=== PATIENT | female | born 1960 | race Caucasian/White ===

== ENCOUNTER 2018-12-27 21:51 | Emergency (ER) | payer BC ==
[~2018-12-27] VITALS: Ht 175.3 cm; Wt 74.8 kg
[2018-12-27 21:55] VITALS: BP_SYST 176
--- NOTE | 2018-12-27 21:55 | NUR ---
EKG done in triage
--- NOTE | 2018-12-27 22:01 | NUR ---
Patient triaged and placed in waiting room. VSS and patient appears in no acute distress at this time. Accompanied by , awaiting available bed, and MD notified of need for MSE.
[2018-12-27 22:46] LABS: BASOPHILS % (AUTO) 0.8 % (0.0-2.0); EOSINOPHILS # (AUTO) 0.2 K/uL (0.0-0.4); EOSINOPHILS % (AUTO) 3.2 % (0.0-4.0); HEMATOCRIT 43.3 % (36-48); HEMOGLOBIN 14.4 g/dL (12.0-16.0); LYMPHOCYTES # (AUTO) 1.5 K/uL (1.0-5.5); LYMPHOCYTES % (AUTO) 27.9 % (20.5-51.5); MEAN CORPUSCULAR HEMOGLOBIN 31 pg (27-31); MEAN CORPUSCULAR HGB CONC 33 % (32-36); MEAN CORPUSCULAR VOLUME 93 fL (79.0-98.0); MONOCYTES # (AUTO) 0.5 K/uL (0.0-1.0); NEUTROPHILS # (AUTO) 3.2 K/uL (1.8-7.7); NEUTROPHILS % (AUTO) 59.1 % (40.0-70.0); PLATELET COUNT (AUTO) 316 K/uL (130-430); RED BLOOD CELL COUNT(AUTO) 4.68 MIL/uL (4.2-6.2); RED CELL DISTRIBUTION WIDTH 13.7 % (9.0-15.0); WHITE BLOOD COUNT (AUTO) 5.5 K/uL (4.8-10.8)
[2018-12-27 23:00] LABS: CREATININE 0.94 mg/dL (0.55-1.30); POTASSIUM 3.5 mmol/L (3.5-5.1)
[2018-12-27 23:11] LABS: ALBUMIN 3.7 g/dL (3.4-4.8); TOTAL BILIRUBIN 0.4 mg/dL (0.0-1.0)
--- NOTE | 2018-12-27 23:11 | NUR ---
Placed in room 1 . Placed on threat monitoring analyst, blood pressure machine and pulse oximeter. To gown for exam. Side rails up. Report given to PHILLIP LERMA.
--- NOTE | 2018-12-27 23:20 | NUR ---
ER Sing at bedside for medical evaluation.
--- NOTE | 2018-12-27 23:25 | NUR ---
Patient AOx4, ambulatory, presents to ER with complaint of palpitations today. Patient states she felt heart racing and soreness to chest. Patient states she medicated with Xanax but was ineffective. Patient states chest discomfort has decreased. Hx of bradycardia. No other symptoms or complaints.
[2018-12-28 00:17] VITALS: BP_SYST 157
--- NOTE | 2018-12-28 00:17 | NUR ---
Patient given written and verbal discharge instructions and verbalizes understanding. ER MD discussed with patient the results and treatment provided. Patient in stable condition. ID arm band removed.Patient educated on pain management and to follow up with PMD. Pain Scale 0/10. Opportunity for questions provided and answered. Medication side effect fact sheet provided.
== END 2018-12-28 00:17 | disposition home or self-care (01) ==
LOC: SED 21:51
DX: R00.2 Palpitations (principal); R07.89 Other chest pain; Z88.6 Allergy status to analgesic agent
CPT/HCPCS: 36415; 71045; 80053; 82550-TC; 83880; 84436; 84443-TC; 84484; 85025; 93005; 99284

== ENCOUNTER 2021-04-01 22:04 | Emergency (ER) | payer BC ==
[~2021-04-01] VITALS: Ht 175.3 cm; Wt 77.1 kg
[2021-04-01 22:04] VITALS: BP_SYST 175
[2021-04-01 22:46] LABS: BASOPHILS % (AUTO) 0.6 % (0.0-2.0); EOSINOPHILS # (AUTO) 0.1 K/uL (0.0-0.4); EOSINOPHILS % (AUTO) 2.4 % (0.0-4.0); HEMATOCRIT 38.2 % (36-48); HEMOGLOBIN 12.9 g/dL (12.0-16.0); LYMPHOCYTES # (AUTO) 1.7 K/uL (1.0-5.5); LYMPHOCYTES % (AUTO) 29.9 % (20.5-51.5); MEAN CORPUSCULAR HEMOGLOBIN 32 pg (27-31); MEAN CORPUSCULAR HGB CONC 34 % (32-36); MEAN CORPUSCULAR VOLUME 93 fL (79.0-98.0); MONOCYTES # (AUTO) 0.6 K/uL (0.0-1.0); MONOCYTES % (AUTO) 10.4 % (1.7-9.3); NEUTROPHILS # (AUTO) 3.2 K/uL (1.8-7.7); NEUTROPHILS % (AUTO) 56.7 % (40.0-70.0); PLATELET COUNT (AUTO) 273 K/uL (130-430); RED BLOOD CELL COUNT(AUTO) 4.11 MIL/uL (4.2-6.2); RED CELL DISTRIBUTION WIDTH 14.3 % (9.0-15.0); WHITE BLOOD COUNT (AUTO) 5.6 K/uL (4.8-10.8)
[2021-04-01 23:10] LABS: CALCIUM 9.5 mg/dL (8.4-11.0); CREATININE 0.81 mg/dL (0.55-1.30); POTASSIUM 4.1 mmol/L (3.5-5.1)
[2021-04-01 23:14] LABS: ALBUMIN 3.9 g/dL (3.4-4.8); TOTAL BILIRUBIN 0.3 mg/dL (0.0-1.0)
[2021-04-02] MEDS ORDERED: LIDOCAINE VISCOUS 2%, 15 ML UDC MM ONE (00:15)
[2021-04-02] MEDS ORDERED: MAG-AL HYDROX/SIMETH 30 ML UDC PO ONE (00:15)
[2021-04-02] MEDS ORDERED: PANTOPRAZOLE SODIUM 40 MG/VIAL (PROTONIX) IVP ONE (00:15)
[2021-04-02 01:03] VITALS: BP_SYST 143
[2021-04-02] MEDS ORDERED: PANT20TA2 PO (01:05)
[2021-04-02] MEDS ORDERED: METO-290 PO (01:05)
== END 2021-04-02 01:03 | disposition home or self-care (01) ==
LOC: SED 22:04
DX: K21.9 Gastro-esophageal reflux disease without esophagitis (principal); Z88.5 Allergy status to narcotic agent; Z79.899 Other long term (current) drug therapy
CPT/HCPCS: 36415; 71045; 80053; 84484; 85025; 93005; 99285; C9113; J2001